=== PATIENT | female | born 1995 | race Caucasian/White ===

== ENCOUNTER 2017-02-05 09:25 | Emergency (ER) | payer MEDICAID, OTHER ==
[~2017-02-05] VITALS: Wt 68.0 kg
[2017-02-05 10:11] LABS: BASOPHILS % 0.3 % (0.0-2.0); EOSINOPHILS # 0.1 10^3/ul (0.0-0.5); HEMATOCRIT 37.6 % (37.0-47.0); HEMOGLOBIN 12.4 g/dl (12.0-16.0); LYMPHOCYTES % 32.5 % (18.0-55.0); MEAN CORPUSCULAR HEMOGLOBIN 27.2 pg (29.0-33.0); MEAN CORPUSCULAR VOLUME 82.5 fl (72.0-104.0); MEAN PLATELET VOLUME 10.5 fl (7.4-10.4); MONOCYTE # 0.4 10^3/ul (0.3-0.9); MONOCYTES % 6.7 % (0.0-13.0); NEUTROPHIL # 3.7 10^3/ul (1.6-7.5); NEUTROPHILS % 59.3 % (30.0-74.0); PLATELET COUNT 229 10^3/UL (140-415); RED BLOOD COUNT 4.56 10^6/ul (4.20-5.40); RED CELL DISTRIBUTION WIDTH 13.4 % (11.5-14.5); WHITE BLOOD COUNT 6.2 10^3/ul (4.8-10.8)
--- NOTE | 2017-02-05 10:21 | RADRPT ---
PROCEDURE: US Pelvis. CLINICAL INDICATION: vaginal bleeding TECHNIQUE: Multiple sonographic images of the pelvis were obtained utilizing a transabdominal tech nique. The images were reviewed on a PACS workstation. COMPARISON: None. FINDINGS: The uterus is normal in size and demonstrates a normal appearance of the myometrium. The endometria l stripe is homogeneous in appearance and has the thickness of 2.8 mm. No intrauterine gestation is noted. The ovaries are normal in size and echogenicity. Normal Doppler flow is identified in both ovaries. The right ovary measures 3.7 x 1.2 x 2.3 cm. The left ovary measures 2.8 x 2.1 x 2.0 cm. There is a small amount of free fluid in the cul-de-sac. RPTAT: AA IMPRESSION: No intrauterine gestation visualized. Differential diagnosis includes early , missed or ectopic . Free fluid in the cul-de-sac. Follow-up ultrasound and HCG levels is recommended. .Scott Paz MD, MD Date Time Electronically viewed and signed by .Scott Paz MD, on 02/05/2017 10:21 .S/
--- NOTE | 2017-02-05 10:35 | ERD ---
ER Documentation Chief Complaint Date/Time DATE: 02/05/17 TIME: 10:34 Chief Complaint VAG BLEED 3 WEEKS PREG HPI 21-year-old female who states that she had a positive test, last menstrual period on December 26 comes in with vaginal bleeding that started yesterday. She reports that she started having bleeding with pelvic cramping, up to 6 pounds yesterday, and 2 pads so far today. She has cramping pain that is in the lower pelvic region achy, sharp, intermittent, moderate pain. She has not had any fevers or chills, dizziness. Patient has done 5 home test, they were all negative up until the last one that was positive a week ago. ROS All systems reviewed and are negative except as per history of present illness. PMhx/Soc Medical and Surgical Hx: pt denies Medical Hx, pt denies Surgical Hx Hx Alcohol Use: No Hx Substance Use: No Hx Tobacco Use: No Physical Exam Vitals Vital Signs Date Time Temp Pulse Resp B/P Pulse Ox O2 Delivery O2 Flow Rate FiO2 02/05/17 09:27 98.0 82 18 126/71 99 Physical Exam General: Well-developed, well-nourished. The patient appears in no acute distress. HEENT: Head is normocephalic, atraumatic. No scleral icterus. Neck: Supple. Nontender. Lungs: Clear to auscultation. Normal air movement. Heart: Regular rate and rhythm. S1 and S2 are normal. No murmurs, gallops, or rubs. Abdomen: Soft, nontender, nondistended. Bowel sounds are normoactive. Extremities: No clubbing or cyanosis. Normal pulses. Moving extremities x 4. No weakness. Neurologic: Alert and oriented 3. No focal deficits. Skin: Normal turgor. No rash or lesions. Result Diagram: 02/05/17 0945 Results 24 hrs Laboratory Tests Test 02/05/17 09:40 02/05/17 09:45 Urine Color YELLOW Urine Clarity SLIGHTLY CLOUDY Urine pH 5.0 Urine Specific [place] 1.023 Urine Ketones NEGATIVEmg/dL Urine Nitrite NEGATIVEmg/dL Urine Bilirubin NEGATIVEmg/dL Urine Urobilinogen NEGATIVEmg/dL Urine Leukocyte Esterase NEGATIVELeu/ul Urine Microscopic RBC > 182/HPF Urine Microscopic WBC 4/HPF Urine Squamous Epithelial Cells FEW/HPF Urine Mucus FEW/HPF Urine Hemoglobin 3+mg/dL Urine Glucose NEGATIVEmg/dL Urine Total Protein NEGATIVEmg/dl White Blood Count 6.210^3/ul Red Blood Count 4.5610^6/ul Hemoglobin 12.4g/dl Hematocrit 37.6% Mean Corpuscular Volume 82.5fl Mean Corpuscular Hemoglobin 27.2pg Mean Corpuscular Hemoglobin Concent 33.0g/dl Red Cell Distribution Width 13.4% Platelet Count 22561^3/UL Mean Platelet Volume 10.5fl Neutrophils % 59.3% Lymphocytes % 32.5% Monocytes % 6.7% Eosinophils % 1.0% Basophils % 0.3% Nucleated Red Blood Cells % 0.0/100WBC Neutrophils # 3.710^3/ul Lymphocytes # 2.010^3/ul Monocytes # 0.410^3/ul Eosinophils # 0.110^3/ul Basophils # 0.010^3/ul Nucleated Red Blood Cells # 0.010^3/ul Beta HCG, Quantitative < 2.4mIU/ml Procedures/MDM MDM: 21-year-old female comes in with vaginal bleeding, differential diagnosis includes spontaneous missed , threatened , incomplete , ectopic , dysmenorrhea, and among others. Her hCG is less than 2.4, at this time it is likely that patient either had a false positive, or spontaneous . Patient's pain and bleeding at this time, are not severe , suspicion for ovarian torsion is low, hemorrhage, or any signs of hemodynamic instability. Recheck in 1-2 days, or return sooner for any worsening or new symptoms per Departure Diagnosis: Primary Impression: Vaginal bleeding Condition: TAMIA Cuello PA-C Feb 05, 2017 10:35
[2017-02-05 10:43] LABS: ADD UMIC YES; UR ASCORBIC ACID NEGATIVE (NEGATIVE); UR BILIRUBIN (Dip) NEGATIVE (NEGATIVE); UR BLOOD (Dip) 3+ mg/dL (NEGATIVE); UR CLARITY SLIGHTLY CLOUDY (CLEAR); UR COLOR YELLOW (YELLOW); UR GLUCOSE (Dip) NEGATIVE (NEGATIVE); UR KETONES (Dip) NEGATIVE (NEGATIVE); UR LEUKOCYTE ESTERASE (Dip) NEGATIVE Leu/ul (NEGATIVE); UR MUCUS FEW /HPF (NONE SEEN); UR NITRITE (Dip) NEGATIVE (NEGATIVE); UR RBC > 182 /HPF (0-5); UR SPECIFIC GRAVITY (Dip) 1.023 (1.003-1.030); UR SQUAMOUS EPITHELIAL CELL FEW /HPF (FEW); UR TOTAL PROTEIN (Dip) NEGATIVE (NEGATIVE); UR UROBILINOGEN (Dip) NEGATIVE (NEGATIVE)
== END 2017-02-05 11:20 | disposition home or self-care (01) ==
LOC: FTE 09:25
DX: O20.9 Hemorrhage in early pregnancy, unspecified (principal); Z3A.01 Less than 8 weeks gestation of pregnancy
CPT/HCPCS: 36415; 76801; 76817; 81001; 84702; 85025; 86900; 86901; Z7502

== ENCOUNTER 2017-04-22 23:28 | Emergency (ER) | payer SELFPAY ==
[~2017-04-22] VITALS: Ht 165.1 cm; Wt 79.5 kg
[2017-04-22 23:33] VITALS: Ht 165.1 cm; Wt 79.5 kg
== END 2017-04-23 02:00 | disposition left against medical advice (07) ==
LOC: FTE 23:28
DX: Z53.21 Procedure and treatment not carried out due to patient leaving prior to being seen by health care provider (principal)

== ENCOUNTER 2017-05-03 22:43 | Emergency (ER) | payer SELFPAY ==
[~2017-05-03] VITALS: Ht 157.5 cm; Wt 79.5 kg
[2017-05-03 23:25] VITALS: Ht 157.5 cm; Wt 79.5 kg
== END 2017-05-04 01:08 | disposition left against medical advice (07) ==
LOC: FTE 22:43 → E/R 05-04 01:08
DX: Z53.21 Procedure and treatment not carried out due to patient leaving prior to being seen by health care provider (principal)